=== PATIENT | female | born 1930 | race Caucasian/White ===

== ENCOUNTER 2017-03-25 14:43 | Inpatient (IN) | payer MEDICARE, BC ==
[~2017-03-25] VITALS: Ht 160 cm; Wt 41.3 kg
[~2017-03-25 14:43] MED LIST: ASPIRIN 32325 MG/TAB PO; CALCIUM-500 5001 CTB PO; CLEOCIN HCL300 MG PO; DITROPAN XL 5MG5 M1 PO; DUO-KAPS1 CAP PO; MIRALAX PA17 GM/Dose PO; MULTI VITAMINS1 TAB PO; NORCO 325 MG-51 TAB PO; PRILOTC; SYNTHROID0.088 MG/T PO; TYLENOL 500MG500 MG PO; VITAMINC500CH PO
[2017-03-25 16:21] VITALS: BP 124/46; PULSE 80; TEMP 98.1
[2017-03-25] MEDS ORDERED: ASPIRIN 81M81 MG/TA2 PO (16:33)
[2017-03-25] MEDS ORDERED: PLAVIX 75MG TAB75 MG PO (17:02)
[2017-03-25] MEDS ORDERED: LASIX 20MG TABL20 MG PO (17:04)
[2017-03-25 20:24] VITALS: BP 133/47; PULSE 86; TEMP 98.6
[2017-03-25 23:50] VITALS: BP 118/43; PULSE 73; TEMP 98.6
[2017-03-26 02:37] VITALS: BP 107/32; PULSE 98; TEMP 98.5
[2017-03-26 08:26] LABS: ADD PATHOLOGY DIFF REVIEW NO
[2017-03-26 08:31] VITALS: BP 127/42; PULSE 72; TEMP 98.2
[2017-03-26 08:33] LABS: MEAN CELL VOLUME 86 fl (80.0-100.0); MEAN CORPUSCULAR HGB CONC 30 g/dl (33.0-37.0); MEAN PLATELET VOLUME 11.1 fl (7.4-10.4); PLATELET COUNT 159 K/mm3 (130-400); RED BLOOD COUNT 4.01 M/mm3 (4.10-5.30); REDCELL DISTRIBUTION WIDTH-CV 17.9 % (11.5-14.5); WHITE BLOOD COUNT 11.3 K/mm3 (4.8-10.8)
[2017-03-26 08:39] LABS: HEMATOCRIT 34.6 % (37.0-47.0); HEMOGLOBIN 10.2 g/dl (12.5-16.0); MEAN CORPUSCULAR HEMOGLOBIN 25 pg (27.0-31.0)
[2017-03-26 08:41] LABS: CALCIUM 7.6 mg/dL (8.4-10.2); CREATININE, serum 0.83 mg/dL (0.52-1.25); MAGNESIUM 2.1 mg/dL (1.6-2.3)
[2017-03-26 08:43] LABS: POTASSIUM 2.8 mmol/L (3.4-5.0)
[2017-03-26 09:15] LABS: BAND 6 % (0-10); NEUTROPHILS 72 % (42.0-75.2); TOTAL CELLS COUNTED 100
[2017-03-26 09:17] LABS: HYPOCHROMIA 1+
[2017-03-26 09:18] LABS: ANISOCYTOSIS 1+; PLATELET ESTIMATE NORMAL (NORMAL)
[2017-03-26 11:59] VITALS: BP 91/42; PULSE 63; TEMP 98
[2017-03-26 16:13] VITALS: BP 130/48; PULSE 82; TEMP 98.5
[2017-03-26 20:24] VITALS: BP 108/40; PULSE 83; TEMP 98.7
[2017-03-26 23:48] VITALS: BP 104/50; PULSE 89; TEMP 98
[2017-03-27 04:02] VITALS: BP 125/48; PULSE 78; TEMP 97.9
[2017-03-27 08:35] VITALS: BP 100/39; PULSE 80; TEMP 98.2
[2017-03-27 12:15] VITALS: BP 103/46; PULSE 81; TEMP 98.2
[2017-03-27 12:21] LABS: CREATININE, serum 0.74 mg/dL (0.52-1.25); POTASSIUM 3.9 mmol/L (3.4-5.0)
[2017-03-27 12:38] LABS: HEMATOCRIT 37.1 % (37.0-47.0); MEAN CELL VOLUME 85 fl (80.0-100.0); MEAN CORPUSCULAR HEMOGLOBIN 25 pg (27.0-31.0); MEAN CORPUSCULAR HGB CONC 30 g/dl (33.0-37.0); MEAN PLATELET VOLUME 11.7 fl (7.4-10.4); PLATELET COUNT 160 K/mm3 (130-400); RED BLOOD COUNT 4.37 M/mm3 (4.10-5.30); REDCELL DISTRIBUTION WIDTH-CV 18.5 % (11.5-14.5); WHITE BLOOD COUNT 12.8 K/mm3 (4.8-10.8)
[2017-03-27 12:48] LABS: ADD PATHOLOGY DIFF REVIEW NO
[2017-03-27 13:45] LABS: BAND 8 % (0-10); BASOPHIL 1 % (0-2); NEUTROPHILS 55 % (42.0-75.2); TOTAL CELLS COUNTED 100
[2017-03-27 13:47] LABS: PLATELET ESTIMATE NORMAL (NORMAL)
[2017-03-27] MEDS ORDERED: LASIX 20MG TABL20 MG PO (15:28)
[2017-03-27] MEDS ORDERED: ZITHROMAX TRI-500 MG PO (15:29)
[2017-03-27] MEDS ORDERED: K-DUR20 MEQ PO ×2 (15:33→16:01)
[2017-03-27 15:55] LABS: PH 6 (5-8); SQUAMOUS EPITHELIAL 0-2 /hpf; URINE APPEARANCE Cloudy; URINE BACTERIA Many /hpf; URINE BILIRUBIN Negative (NEGATIVE); URINE BLOOD Negative (NEGATIVE); URINE COLOR Amber; URINE GLUCOSE Negative (NEGATIVE); URINE KETONE Negative (NEGATIVE); URINE UROBILINOGEN Negative (NEGATIVE); URINE WBC >50 /hpf
== END 2017-03-27 17:18 | disposition home or self-care (01) | DRG 197 ==
LOC: MEDICAL 14:43
PROVIDERS: Internal Medicine; Nurse Practitioner Family
DX: J84.10 Pulmonary fibrosis, unspecified (principal); Z68.1 Body mass index [BMI] 19.9 or less, adult; E03.9 Hypothyroidism, unspecified; F17.210 Nicotine dependence, cigarettes, uncomplicated; Z66 Do not resuscitate; K21.9 Gastro-esophageal reflux disease without esophagitis; M81.0 Age-related osteoporosis without current pathological fracture; E87.6 Hypokalemia; J44.9 Chronic obstructive pulmonary disease, unspecified; I73.9 Peripheral vascular disease, unspecified; M25.551 Pain in right hip; Z91.81 History of falling
CPT/HCPCS: OP; 99222-AI; 99232-AI; 99239; G8978-GP; G8979-GP; J1650

== ENCOUNTER → 2017-04-14 | Outpatient (CLI) | payer MEDICARE, BC ==
[~2017-04-14] MED LIST changes: +ASPIRIN 81M81 MG/TA2 PO; +K-DUR20 MEQ PO; +LASIX 20MG TABL20 MG PO; +PLAVIX 75MG TAB75 MG PO; +ZITHROMAX TRI-500 MG PO
== END ==
LOC: COL.RAD 07:14
DX: R06.02 Shortness of breath (principal); J98.09 Other diseases of bronchus, not elsewhere classified
CPT/HCPCS: Q9967